=== PATIENT | female | born 1975 | race African-American/Black ===

== ENCOUNTER 2021-02-18 02:19 | Emergency (ER) | payer OTHER ==
[~2021-02-18] VITALS: Ht 162.6 cm; Wt 82.0 kg
[2021-02-18] MEDS ORDERED: KETOROLAC 30MG/ML VIAL IM ONE (03:15)
[2021-02-18 03:31] LABS: CLARITY URINE TURBID (CLEAR); COLOR URINE ORANGE (YELLOW); KETONES URINE TRACE (NEGATIVE); LEUKOCYTE ESTERASE URINE NEGATIVE (NEGATIVE); NITRITE URINE NEGATIVE (NEGATIVE); OCCULT BLOOD URINE NEGATIVE (NEGATIVE); PH URINE >=9.0 (4.5-8.0); PROTEIN URINE 1+ (NEGATIVE); SPECIFIC GRAVITY URINE 1.028 (1.005-1.030)
[2021-02-18 03:34] VITALS: BP 151/75
[2021-02-18] MEDS ORDERED: CYCLOBENZAPRINE 10MG TABLET PO ONE (04:00)
[2021-02-18] MEDS ORDERED: CYCL10TA7 MT (04:11)
[2021-02-18] MEDS ORDERED: T3 PO (04:11)
[2021-02-18] MEDS ORDERED: IBUP-2029 MT (04:11)
== END 2021-02-18 04:36 | disposition home or self-care (01) ==
LOC: ER 02:19
DX: M54.5 Low back pain (principal)
CPT/HCPCS: 81003; 96372; 99283; J1885

== ENCOUNTER 2021-09-11 10:00 | Emergency (ER) | payer OTHER ==
[~2021-09-11] VITALS: Ht 167.6 cm; Wt 68.0 kg
[~2021-09-11 10:00] MED LIST: CYCL10TA7 MT; IBUP-2029 MT; T3 PO
[2021-09-11 10:15] VITALS: BP 140/89
[2021-09-11] MEDS ORDERED: SODIUM CHLORIDE 0.9% 1,000 ML IV ONE (10:45)
[2021-09-11 11:05] LABS: CLARITY URINE CLEAR (CLEAR); COLOR URINE YELLOW (YELLOW); KETONES URINE NEGATIVE (NEGATIVE); LEUKOCYTE ESTERASE URINE NEGATIVE (NEGATIVE); NITRITE URINE NEGATIVE (NEGATIVE); OCCULT BLOOD URINE 3+ (NEGATIVE); PH URINE 6.5 (4.5-8.0); PROTEIN URINE TRACE (NEGATIVE); SPECIFIC GRAVITY URINE 1.014 (1.005-1.030)
[2021-09-11 11:07] LABS: BASOPHILS % 0.7 % (0.0-2.0); EOSINOPHILS % 1.3 % (0.0-5.0); HEMOGLOBIN. 13.9 g/dL (12.0-16.0); LYMPHOCYTES % 22.7 % (20.0-50.0); MEAN CORPUSCULAR HEMOGLOBIN 29.3 pg (28.0-32.0); MEAN CORPUSCULAR VOLUME 86.1 fL (81.0-99.0); MEAN PLATELET VOLUME 7.9 fl (7.4-10.4); MONOCYTES % 6.9 % (2.0-8.0); NEUTROPHILS % 68.4 % (40.0-76.0); PLATELET 350 x1000/uL (130-400); RED BLOOD CELL COUNT 4.76 mill/uL (4.2-5.4); RED CELL DISTRIBUTION WIDTH 14.1 % (11.6-14.6)
[2021-09-11 11:10] LABS: CHLORIDE 103 mEq/L (98-107)
== END 2021-09-11 12:18 | disposition home or self-care (01) ==
LOC: ER 10:00
DX: R42 Dizziness and giddiness (principal); R00.0 Tachycardia, unspecified; F12.10 Cannabis abuse, uncomplicated
CPT/HCPCS: 36415; 80053; 81003; 85025; 93005; 99284; J7030